=== PATIENT | male | born 1940 | race Caucasian/White ===

== ENCOUNTER → 2020-07-29 | Outpatient (CLI) | payer MEDICARE, OTHER ==
[~2020-07-29] MED LIST: ACYC800T PO; ALBU2.5V8 INH; ASCO500C PO; ASPI-889 PO; ATOR40TA PO; AZEL137S3 NS; CALC390T PO; CHOL500021 PO; CIDE500T PO; CINN500C2 PO; DOXY100T PO; ECON15CR8 TP; FERR1TAB8 PO; FOLI0.8T33 PO; GLIM2TAB7 PO; GLUC-11 PO; KRIL1CAP10 PO; LACT1CAP29 PO; LEVO100T5 PO; LORA10CA PO; MV-M1TAB8 PO; NIAC500C6 PO; RAMI5CAP33 PO; TAMS0.4C97 PO; UBID100T5 PO; VITA400C37 PO; [UNRECOGNIZED DRUG - CODE] PO
== END | disposition home or self-care (01) ==
LOC: LAB 10:44
PROVIDERS: ATTEND Nurse Anesthetist, Certified Registered
DX: Z20.828 Contact with and (suspected) exposure to other viral communicable diseases (principal)
CPT/HCPCS: U0003-CS

== ENCOUNTER → 2020-08-02 | Day surgery (SDC) | payer MEDICARE, OTHER ==
[~2020-08-02] MED LIST changes: +IPRATRPIUM/ALBUTEROL 0.5/2.5MG 3 ML NEBU. NEB PRN; +IV RINGERS SOLUTION,LACTATED 1,000 ML IV SCH; +MIDAZOLAM HCL PF 2 MG/2 ML VIAL. IV ONE; +ONDANSETRON PF 4 MG/2 ML VIAL. IV PRN; +PROPOFOL 10,000 MCG/ML (20ML) VIAL IV ONE
[2020-08-02 11:35] VITALS: BP 122/71
--- NOTE | 2020-08-03 15:08 | PATHOLOGY ---
[facility] Accession Number: [id number] . 01 Material submitted: . stomach - GASTRIC BX . 01 Clinical history: . EGD . 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 ([facility]PM:[facility] 08/03/2020) [facility] 08/03/2020 0925 Local . 02 Comment: Sections of the gastric biopsy reveal segments of gastric antral mucosa showing congestion, foveolar hyperplasia, and mild chronic inflammation with focal intestinal metaplasia. A properly controlled immunoperoxidase stain for Helicobacter is negative for Helicobacter organisms. The findings are consistent with a reactive gastropathy. (JPM:[facility] 08/03/2020) . Special stain performed: Immunoperoxidase for Helicobacter . 02 Electronically signed: . Trent Shaw MD, Pathologist NPI- [id number] . 01 Gross description: . The specimen is received in formalin, labeled "Trent Barrett, gastric BX" and consists of 2 fragments of pink-choe tissue measuring 0.3 x 0.2 cm and 0.4 x 0.2 cm which are entirely submitted in A1. (SDY; 08/02/2020) SYU/SYU 08/02/2020 1739 Local . 02 Pathologist provided ICD-10: K29.50, K31.9 . 02 CPT . 594720, J31082 Specimen Comment: A courtesy copy of this report has been sent [phone] Specimen Comment: [phone] Specimen Comment: Report sent to / DR FRIEDMAN Performed at: [address], [place], [place] [id number] MD Yobany Foy MD Phone: [phone] Performed at: 02 [facility] [address] [place], [place] [id number] MD Trent Shaw MD Phone: [phone]
== END | disposition home or self-care (01) ==
LOC: SURG 09:06
PROVIDERS: ATTEND Emergency Medicine
DX: R13.10 Dysphagia, unspecified (principal); K31.9 Disease of stomach and duodenum, unspecified; K22.70 Barrett's esophagus without dysplasia; Z79.82 Long term (current) use of aspirin; Z79.899 Other long term (current) drug therapy
CPT/HCPCS: 43239; 43450; 88305; 88342; J2704; J7120